=== PATIENT | female | born 1995 | race American Indian/Alaskan Native ===

== ENCOUNTER 2016-10-11 18:30 | Emergency (ER) | payer SELFPAY ==
[2016-10-11 19:23] LABS: Basophils % (Auto) 0.3 % (0.0-1.8); Eosinophils % (Auto) 0.3 % (0.0-4.3); Hematocrit 34.1 % (30.3-42.9); Hemoglobin 10.9 gm/dl (10.1-14.3); Mean Corpuscular HGB Conc 32 % (30-34); Mean Corpuscular Hemoglobin 28 pg (28-32); Mean Corpuscular Volume 87 fl (79-97); Platelet Count 227 K/mm3 (140-440); Red Blood Count 3.93 M/mm3 (3.65-5.03); Red Cell Distribution Width 12.4 % (13.2-15.2); White Blood Count 9.4 K/mm3 (4.5-11.0)
[2016-10-11] MEDS ORDERED: LIDOCAINE VISCOUS 2% ONE (20:43)
[2016-10-11] MEDS ORDERED: XYLOCAINE TOPICAL 2% ONE (20:45)
--- NOTE | 2016-10-11 20:51 | Emergency Department Report ---
ED HPI - General Chief complaint: Vaginal Bleeding Stated complaint: X 4 WKS/BLEEDING Time Seen by Provider: 10/11/16 20:07 Source: patient Mode of arrival: Ambulatory Limitations: No Limitations - History of Present Illness Initial comments: Patient is a 21-year-old female with no past medical history , presenting with vaginal bleeding and lower abdominal cramping. Patient reports she has been having intermittent lower abdominal cramping, vaginal bleeding with clots for the last 7 days and reports she found that she is yesterday at [facility]. Patient reports she is bleeding like a normal cycle. Patient has no by mouth care. Otherwise no fevers, chills, headache, dizziness , nausea, vomiting, shortness of breath, chest pain, back pain, dysuria, travel , or sick contacts. - Related Data Allergies Allergy/AdvReac Type Severity Reaction Status Date / Time No Known Allergies Allergy Unverified 10/11/16 18:39 ED Review of Systems ROS: Stated complaint: X 4 WKS/BLEEDING Other details as noted in HPI Comment: All other systems reviewed and negative ED Past Medical Hx - Past Medical History Previous Medical History?: No - Surgical History Past Surgical History?: No - Social History Smoking Status: Never Smoker Substance Use Type: None ED Physical Exam - General Limitations: No Limitations General appearance: alert, in no apparent distress - Head Head exam: Present: atraumatic, normocephalic - Eye Eye exam: Present: normal appearance - ENT ENT exam: Present: mucous membranes moist - Neck Neck exam: Present: normal inspection - Respiratory Respiratory exam: Present: normal lung sounds bilaterally. Absent: respiratory distress - Cardiovascular Cardiovascular Exam: Present: regular rate, normal rhythm. Absent: systolic murmur, diastolic murmur, rubs, gallop - GI/Abdominal GI/Abdominal exam: Present: soft, normal bowel sounds. Absent: distended, tenderness, guarding, rebound, rigid - Rectal Rectal exam: Present: deferred - External exam: Present: normal external exam, bleeding Speculum exam: Present: vaginal bleeding, other. Absent: erythema, vaginal discharge, cervical discharge Bi-manual exam: Present: normal bi-manual exam, other (Cervix is closed). Absent: cervical motion tendernes - Extremities Exam Extremities exam: Present: normal inspection - Back Exam Back exam: Present: normal inspection - Neurological Exam Neurological exam: Present: alert, oriented X3 - Psychiatric Psychiatric exam: Present: normal affect, normal mood - Skin Skin exam: Present: warm, dry, intact, normal color. Absent: rash ED Course Vital Signs 10/11/16 10/11/16 10/11/16 18:40 19:39 19:40 Temperature 99.7 F H Pulse Rate 121 H Respiratory 16 Rate Blood Pressure 124/79 122/79 Blood Pressure [Left] O2 Sat by Pulse 97 100 100 Oximetry 10/11/16 10/11/16 10/11/16 19:48 19:49 19:50 Temperature 98.6 F Pulse Rate 105 H Respiratory 16 14 Rate Blood Pressure 122/79 Blood Pressure 122/79 [Left] O2 Sat by Pulse 100 98 Oximetry 10/11/16 10/11/16 10/11/16 20:00 20:45 20:56 Temperature Pulse Rate 91 H Respiratory 18 Rate Blood Pressure 113/77 123/77 Blood Pressure [Left] O2 Sat by Pulse 99 100 Oximetry ED Medical Decision Making - Lab Data Result diagrams: 10/11/16 19:09 - Radiology Data Radiology results: report reviewed Ultrasound OB: Small gestational sac in the uterus. By sac size estimated at 5 weeks 2 days. No structures identified. May be very early gestation and continued follow-up recommended. - Medical Decision Making Results discussed with the patient. Pt reports she does not want to maintain this . Pt understands we do not terminate pregnancies in the ED and she needs to follow up with the transit planning director. Even though the patient wishes to terminate I will strategic alliances manager her a script to have her Beta HCG quant re-checked in 2 days. Repeat HR: 91, improved on its own Critical care attestation.: If time is entered above; I have spent that time in minutes in the direct care of this critically ill patient, excluding procedure time. ED Disposition Clinical Impression: Threatened , Vaginal bleeding in Disposition: DC-01 TO HOME OR SELFCARE Is pt being admited?: No Condition: Stable Instructions: Threatened Miscarriage (ED) Additional Instructions: PLEASE GO TO A LAB AND HAVE YOUR BETA HCG CHECKED AGAIN IN 2 DAYS TO ENSURE IT IS RISING APPROPRIATELY IF YOU PLAN TO MAINTAIN YOUR PLEASE FOLLOW UP WITH STATION WORKER Referrals: PRIMARY CARE, [Primary Care Provider] - 3-5 Days
[2016-10-11 20:56] VITALS: BP 123/77
--- NOTE | 2016-10-11 21:06 | Ultrasound Report ---
FINAL REPORT EXAM: US OB TRANSVAGINAL HISTORY: Vaginal bleeding positive beta HCG 2200 TECHNIQUE: Ultrasound obstetrical transvaginal PRIORS: None. FINDINGS: There is small sac within the uterus measuring 0.0 x 4.2 x 6.2 centimeters. No pole or yolk identified at this time. The uterus is 8.0 x 4.2 x 6.2 centimeters the right ovary is 3.0 x 2.1 x 1.7 centimeters. The left ovary is 2.4 x 1.5 x 2.3 centimeters. Ovaries demonstrate normal echogenicity. No free fluid is identified within the cul-de-sac IMPRESSION: Small gestational sac within the uterus. By sac size estimated at 5 weeks 2 days. No structures identified. May be very early gestation and continued followup recommended.
--- NOTE | 2016-10-11 21:08 | Ultrasound Report ---
FINAL REPORT EXAM: US OB \T\lt; = 14 WEEKS FETUS HISTORY: bleeding TECHNIQUE: Ultrasound pelvis transabdominal PRIORS: None. FINDINGS: There is small sac within the uterus measuring 0.0 x 4.2 x 6.2 centimeters. No pole or yolk identified at this time. The uterus is 8.0 x 4.2 x 6.2 centimeters the right ovary is 3.0 x 2.1 x 1.7 centimeters. The left ovary is 2.4 x 1.5 x 2.3 centimeters. Ovaries demonstrate normal echogenicity. No free fluid is identified within the cul-de-sac IMPRESSION: Small gestational sac within the uterus. By sac size estimated at 5 weeks 2 days. No structures identified. May be very early gestation and continued followup recommended.
[2016-10-11] MEDS ORDERED: XYLOCAINE TOPICAL 2% TP ONE ×2 (22:01→23:00)
[2016-10-11 22:43] LABS: Bacteria,Urine 1+ /HPF (Negative); Bilirubin,Urine NEG (Negative); Blood,Urine LG (Negative); Ketones,Urine NEG (Negative); Leukocyte Esterase,Urine TR (Negative); Nitrite,Urine NEG (Negative); Protein,Urine <15 mg/dL mg/dL (Negative); Urobilinogen,Urine < 2.0 mg/dL (<2.0)
== END 2016-10-11 23:36 | disposition home or self-care (01) ==
LOC: ED 18:30
DX: O20.0 Threatened abortion (principal); Z3A.01 Less than 8 weeks gestation of pregnancy
CPT/HCPCS: 36415; 76801; 76817; 81001; 84702; 84703; 85025; 86850; 86900; 86901

== ENCOUNTER 2016-10-18 12:16 | Emergency (ER) | payer MEDICAID ==
[2016-10-18 14:17] LABS: Basophils % (Auto) 0.3 % (0.0-1.8); Eosinophils % (Auto) 0.3 % (0.0-4.3); Hematocrit 30.5 % (30.3-42.9); Hemoglobin 9.6 gm/dl (10.1-14.3); Mean Corpuscular HGB Conc 32 % (30-34); Mean Corpuscular Hemoglobin 28 pg (28-32); Mean Corpuscular Volume 88 fl (79-97); Red Blood Count 3.47 M/mm3 (3.65-5.03); Red Cell Distribution Width 12.5 % (13.2-15.2); White Blood Count 12.2 K/mm3 (4.5-11.0)
[2016-10-18 15:17] LABS: Platelet Count 235 K/mm3 (140-440)
[2016-10-18 15:19] LABS: Mean Platelet Volume 8.8 fl (6-12)
--- NOTE | 2016-10-18 16:15 | Ultrasound Report ---
Transabdominal and transvaginal OB ultrasound. History: Vaginal bleeding. Her serum hCG at the time of the study measures 1420. Findings: A gestational sac is not identified on today's study. This represents an interval change since the study on October 11. The endometrial echo measures 13 mm in thickness. The right ovary is normal in size. There is a 2.5 cm in diameter complex area in the right ovary. The left ovary is prominent measuring 4.9 x 2.6 x 3.9 cm. There is a complex area in the left ovary measuring 3.4 cm in size. Impression: 1. No evidence of gestational sac is seen on today's study indicating complete . 2. Nonspecific bilateral complex lesions in the ovaries.
[2016-10-18 17:30] LABS: Bilirubin,Urine NEG (Negative)
[2016-10-18 17:31] LABS: Blood,Urine LG (Negative); Ketones,Urine 80 mg/dL (Negative); Leukocyte Esterase,Urine MOD (Negative); Mucus,Urine 3+ /HPF; Nitrite,Urine NEG (Negative)
--- NOTE | 2016-10-18 19:58 | Emergency Department Report ---
ED Female HPI - General Chief complaint: Abdominal Pain Stated complaint: /BLEEDING Time Seen by Provider: 10/18/16 19:39 Source: patient Mode of arrival: Ambulatory Limitations: No Limitations - Related Data Allergies Allergy/AdvReac Type Severity Reaction Status Date / Time No Known Allergies Allergy Unverified 10/11/16 18:39 ED Review of Systems ROS: Stated complaint: /BLEEDING Other details as noted in HPI ED Past Medical Hx - Past Medical History Previous Medical History?: No - Surgical History Past Surgical History?: No - Social History Smoking Status: Never Smoker Substance Use Type: None ED Physical Exam - General Limitations: No Limitations ED Course Vital Signs 10/18/16 10/18/16 13:39 16:50 Temperature 97.9 F 98.5 F Pulse Rate 103 H 101 H Respiratory 18 18 Rate Blood Pressure 127/81 Blood Pressure 122/77 [Left] O2 Sat by Pulse 100 100 Oximetry ED Medical Decision Making - Lab Data Result diagrams: 10/18/16 13:50 Critical care attestation.: If time is entered above; I have spent that time in minutes in the direct care of this critically ill patient, excluding procedure time. ED Disposition Condition: Stable Instructions: Abdominal Pain (ED)
[2016-10-18] MEDS ORDERED: MOTRIN PO ONE (20:22)
[2016-10-18 21:22] LABS: Basophils % (Auto) 0.2 % (0.0-1.8); Eosinophils % (Auto) 0.3 % (0.0-4.3); Hematocrit 30.5 % (30.3-42.9); Hemoglobin 9.7 gm/dl (10.1-14.3); Mean Corpuscular HGB Conc 32 % (30-34); Mean Corpuscular Hemoglobin 27 pg (28-32); Mean Corpuscular Volume 85 fl (79-97); Platelet Count 314 K/mm3 (140-440); Red Blood Count 3.59 M/mm3 (3.65-5.03); Red Cell Distribution Width 12.2 % (13.2-15.2); White Blood Count 9.6 K/mm3 (4.5-11.0)
[2016-10-18 21:39] LABS: Alanine Aminotransferase 20 units/L (7-56); Albumin/Globulin Ratio 1.2 %; Alkaline Phosphatase 70 units/L (35-129); Amylase 51 units/L (27-131); Anion Gap 21 mmol/L; BUN/Creatinine Ratio 11.66; Blood Urea Nitrogen 7 mg/dL (7-17); Carbon Dioxide 21 mmol/L (22-30); Chloride 99.6 mmol/L (98-107); Glucose 93 mg/dL (65-100); Lipase 15 units/L (13-60); Potassium 3.2 mmol/L (3.6-5.0); Sodium 138 mmol/L (137-145); Total Protein 7.4 g/dL (6.3-8.2)
[2016-10-18 21:46] LABS: Bilirubin,Direct < 0.2 mg/dL (0-0.2); Bilirubin,Indirect 0.2 mg/dL
[2016-10-18] MEDS ORDERED: K-DUR PO ONE (21:55)
[2016-10-18 22:52] VITALS: BP 112/73
--- NOTE | 2016-10-21 19:40 | Emergency Department Report ---
Entered by LYNDA GODINEZ, acting as scribe for BETH DIEHL PA. ED Abdominal Pain HPI - General Chief Complaint: Abdominal Pain Stated Complaint: /BLEEDING Time Seen by Provider: 10/18/16 19:43 Source: patient Mode of arrival: Ambulatory Limitations: No Limitations - History of Present Illness Initial Comments: 21 y/o female presents to the ED c/o diffuse abdominal pain x 1 week. Associated symptoms include fever, chills, nausea, and vaginal bleeding ( reducing presently) but she denies vomiting and vaginal discharge. Pain is described as cramping and 10/10 on a severity scale. Patient is and reports OBGYN visit. Denies using tobacco products and alcohol. NKDA. LMP: . MD Complaint: abdominal pain Onset/Timin -: week(s) Location: diffuse Radiation: none Migration to: no migration Severity: severe Severity scale (0 -10): 10 Quality: cramping Consistency: intermittent Improves With: nothing Worsens With: nothing Associated Symptoms: nausea, fever, chills, other (vaginal bleeding, weakness, no vomiting, no vaginal discharge). denies: vomiting - Related Data LMP Date: 09/11/16 LMP (females 10-50): Previous Rx's Medication Instructions Recorded Last Taken Type Ibuprofen [Motrin] 600 mg PO Q8H PRN #30 tablet 10/18/16 Unknown Rx Potassium Chloride [K-Dur] 20 meq PO BID #10 tablet 10/18/16 Unknown Rx metroNIDAZOLE [Flagyl TAB] 500 mg PO Q12HR #14 tab 10/18/16 Unknown Rx Allergies Allergy/AdvReac Type Severity Reaction Status Date / Time No Known Allergies Allergy Unverified 10/11/16 18:39 ED Review of Systems Comment: All other systems reviewed and negative Constitutional: chills, fever Gastrointestinal: abdominal pain, nausea. denies: vomiting Genitourinary: other (vaginal bleeding). denies: discharge Neurological: weakness ED Past Medical Hx - Past Medical History Previous Medical History?: No - Surgical History Past Surgical History?: No - Social History Smoking Status: Never Smoker Substance Use Type: None - Medications Home Medications: Home Medications Medication Instructions Recorded Confirmed Last Taken Type Ibuprofen [Motrin] 600 mg PO Q8H PRN #30 tablet 10/18/16 Unknown Rx Potassium Chloride [K-Dur] 20 meq PO BID #10 tablet 10/18/16 Unknown Rx metroNIDAZOLE [Flagyl TAB] 500 mg PO Q12HR #14 tab 10/18/16 Unknown Rx ED Physical Exam - General Limitations: No Limitations General appearance: alert, in no apparent distress - Head Head exam: Present: atraumatic, normocephalic, normal inspection - Eye Eye exam: Present: normal appearance, PERRL, EOMI Pupils: Present: normal accommodation - ENT ENT exam: Present: normal exam, normal orophraynx, mucous membranes moist, TM's normal bilaterally, normal external ear exam - Neck Neck exam: Present: normal inspection, full ROM. Absent: tenderness - Respiratory Respiratory exam: Present: normal lung sounds bilaterally. Absent: respiratory distress, wheezes, rales, rhonchi, chest wall tenderness - Cardiovascular Cardiovascular Exam: Present: regular rate, normal rhythm, normal heart sounds. Absent: systolic murmur, diastolic murmur, rubs, gallop - GI/Abdominal GI/Abdominal exam: Present: soft, tenderness (suprapubic), normal bowel sounds - External exam: Present: bleeding. Absent: lesions Speculum exam: Present: vaginal bleeding Bi-manual exam: Present: normal bi-manual exam, other (blood in vaginal vault ) . Absent: cervical motion tendernes, adnexal tenderness - Extremities Exam Extremities exam: Present: normal inspection, full ROM. Absent: tenderness, normal capillary refill, pedal edema, joint swelling, calf tenderness - Back Exam Back exam: Present: normal inspection, full ROM. Absent: tenderness, CVA tenderness (R), CVA tenderness (L), muscle spasm, paraspinal tenderness, vertebral tenderness, rash noted - Neurological Exam Neurological exam: Present: alert, oriented X3 - Psychiatric Psychiatric exam: Present: normal affect, normal mood - Skin Skin exam: Present: warm, dry, intact, normal color - Other Other exam information: Pat Godinez present during external/speculum/bi-manual exam ED Course Vital Signs 10/18/16 10/18/16 10/18/16 13:39 16:50 20:55 Temperature 97.9 F 98.5 F Pulse Rate 103 H 101 H Respiratory 18 18 16 Rate Blood Pressure 127/81 Blood Pressure 122/77 [Left] O2 Sat by Pulse 100 100 Oximetry ED Medical Decision Making - Lab Data Result diagrams: 10/18/16 20:51 10/18/16 20:51 - Medical Decision Making A/P: Miscarriage, complete , anemia, Rh- blood type status and , crampy lower abdominal pain, BV 1-ultrasound consistent with incomplete miscarriage/. No gestational sac shown on ultrasound. Patient had visualized gestational sac on 10/11/16. Patient has had drop in hCG level. These are all findings consistent with spontaneous miscarriage 2-CBC shows mild anemia, will give patient iron supplementation. BMP shows mild hypokalemia will give patient by mouth supplementation 3-Motrin when necessary for crampy lower abdominal pain 4- I advised the patient to follow up with SENIOR RISK MANAGER and gave her referral for OB/ COFOUNDER follow-up 5- no clinical signs of PID there is no cervical motion tenderness or adnexal tenderness on pelvic exam 6-I advised the patient to return to the ED for any increase in vaginal bleeding , generalized weakness, nausea and vomiting or fever and chills. Patient stated that she understood my instructions 7-patient is A- blood type RhoGAM administered in the ED. 8- metronidazole for BV x7 days ED Disposition Clinical Impression: Miscarriage, Anemia Disposition: - TO HOME OR SELFCARE Is pt being admited?: No Does the pt Need Aspirin: No Condition: Stable Instructions: Spontaneous Miscarriage (ED), Iron Deficiency Anemia (ED), Rho(D ) Immune Globulin (Injection), Bacterial Vaginosis (ED) Prescriptions: Ibuprofen [Motrin] 600 mg PO Q8H PRN #30 tablet PRN Reason: Pain metroNIDAZOLE [Flagyl TAB] 500 mg PO Q12HR #14 tab Potassium Chloride [K-Dur] 20 meq PO BID #10 tablet Referrals: [facility] [Provider Group] - 3-5 Days CONSTANZA RAYGOZA MD [Staff Physician] - 3-5 Days Forms: Work/School Release Form(ED) Time of Disposition: 21:51 This documentation as recorded by the HERBERT cota ELIZABETH,accurately reflects the service I personally performed and the decisions made by me,BETH DIEHL PA.
== END 2016-10-18 22:05 | disposition home or self-care (01) ==
LOC: ED 12:16
DX: O03.9 Complete or unspecified spontaneous abortion without complication (principal); D64.9 Anemia, unspecified
CPT/HCPCS: 36415; 76801; 76817; 80048; 80074; 81001; 82150; 83690; 84702; 85025; 86850; 86900; 86901; 87210; 87591; 99284; J2790

== ENCOUNTER 2020-07-24 00:43 | Emergency (ER) | payer MEDICAID ==
--- NOTE | 2020-07-24 01:11 | Emergency Department Report ---
ED HPI - General Chief complaint: Vaginal Bleeding Stated complaint: MISCARRIAGE Time Seen by Provider: 07/24/20 00:59 Source: patient, EMS Mode of arrival: Stretcher Limitations: No Limitations - History of Present Illness Initial comments: 24-year-old female, , presents to the ED possible miscarriage. Patient states she is 16 weeks . Reports she has been having some vaginal spotting for approximately the last 2 weeks. Patient states she was seen by her SURVEY RESEARCH MANAGER in office. Yesterday, patient passed a clot and went to [facility] ER for evaluation. There, she had an ultrasound showing threatened AB with heart rate present. Patient states after she from the ER, she began having severe abdominal cramping, so she called EMS. En route, patient passed clots and tissue. Patient states her abdominal pain is much better at this time. Patient followed by [facility]. Complaint: abdominal pain, vaginal bleeding, other (Miscarriage) -: This morning Location: pelvis Radiation: none Severity: moderate Quality: cramping Consistency: constant Improves with: none Worsens with: none Associated symptoms: vaginal bleeding Vaginal bleeding: clots :: Yes Number of weeks : 16 OB History - Previous Pregnancies: miscarriage Pre-andreina care: followed by OB - Related Data : 2 Para: 0 Previous Rx's Medication Instructions Recorded Last Taken Type Ibuprofen [Motrin] 600 mg PO Q8H PRN #30 tablet 10/18/16 Unknown Rx Potassium Chloride [K-Dur] 20 meq PO BID #10 tablet 10/18/16 Unknown Rx metroNIDAZOLE [Flagyl TAB] 500 mg PO Q12HR #14 tab 10/18/16 Unknown Rx Naproxen [Naprosyn] 500 mg PO BID #20 tablet 07/24/20 Unknown Rx traMADoL [Ultram] 50 mg PO Q6HR PRN #7 tablet 07/24/20 Unknown Rx Allergies Allergy/AdvReac Type Severity Reaction Status Date / Time No Known Allergies Allergy Unverified 10/11/16 18:39 ED Review of Systems ROS: Stated complaint: MISCARRIAGE Other details as noted in HPI Comment: All other systems reviewed and negative Gastrointestinal: abdominal pain Genitourinary: other (Reports vaginal bleeding) ED Past Medical Hx - Past Medical History Previous Medical History?: No - Surgical History Past Surgical History?: No - Social History Smoking Status: Never Smoker - Medications Home Medications: Home Medications Medication Instructions Recorded Confirmed Last Taken Type Ibuprofen [Motrin] 600 mg PO Q8H PRN #30 tablet 10/18/16 Unknown Rx Potassium Chloride [K-Dur] 20 meq PO BID #10 tablet 10/18/16 Unknown Rx metroNIDAZOLE [Flagyl TAB] 500 mg PO Q12HR #14 tab 10/18/16 Unknown Rx Naproxen [Naprosyn] 500 mg PO BID #20 tablet 07/24/20 Unknown Rx traMADoL [Ultram] 50 mg PO Q6HR PRN #7 tablet 07/24/20 Unknown Rx ED Physical Exam - General Limitations: No Limitations General appearance: alert, in no apparent distress - Head Head exam: Present: atraumatic, normocephalic - Eye Eye exam: Present: normal appearance, EOMI - ENT ENT exam: Present: mucous membranes moist - Neck Neck exam: Present: normal inspection - Respiratory Respiratory exam: Present: normal lung sounds bilaterally. Absent: respiratory distress - Cardiovascular Cardiovascular Exam: Present: regular rate, normal rhythm - GI/Abdominal GI/Abdominal exam: Present: soft, tenderness (Mild suprapubic). Absent: distended - External exam: Present: other (Intact appearing fetus with tissue outside of vagina on stretcher). Absent: bleeding - Extremities Exam Extremities exam: Present: normal inspection - Neurological Exam Neurological exam: Present: alert, oriented X3 - Psychiatric Psychiatric exam: Present: normal affect, normal mood - Skin Skin exam: Present: warm, dry, intact, normal color ED Course Vital Signs 07/24/20 07/24/20 07/24/20 00:50 00:56 01:00 Temperature 98.9 F Pulse Rate 99 H 82 83 Respiratory 16 22 Rate Blood Pressure 127/83 Blood Pressure 115/69 [Right] O2 Sat by Pulse 100 100 100 Oximetry 07/24/20 07/24/20 07/24/20 01:20 01:30 02:00 Temperature Pulse Rate 84 80 Respiratory 18 14 16 Rate Blood Pressure 120/75 126/69 Blood Pressure [Right] O2 Sat by Pulse 100 100 Oximetry 07/24/20 07/24/20 07/24/20 02:30 03:00 03:30 Temperature Pulse Rate 86 82 85 Respiratory 12 15 15 Rate Blood Pressure 112/61 115/61 112/57 Blood Pressure [Right] O2 Sat by Pulse 99 99 98 Oximetry 07/24/20 07/24/20 04:00 04:30 Temperature Pulse Rate 80 84 Respiratory 14 14 Rate Blood Pressure 117/64 101/69 Blood Pressure [Right] O2 Sat by Pulse 100 100 Oximetry ED Medical Decision Making - Lab Data Result diagrams: 07/24/20 01:17 07/24/20 01:17 - Radiology Data Radiology results: report reviewed, image reviewed - Medical Decision Making 24-year-old female presents to ED following complete spontaneous . Patient delivered the fetus which was sent to pathology. Ultrasound is unremarkable, no evidence of retained POC's. Bleeding and cramping have stopped. Vital signs are stable. Patient given RhoGam due to Rh- status. Pat ient advised to follow-up with her SURVEY RESEARCH MANAGER. She will be discharged at this time. Return precautions given. - Differential Diagnosis Complete AB, incomplete AB Critical care attestation.: If time is entered above; I have spent that time in minutes in the direct care of this critically ill patient, excluding procedure time. ED Disposition Clinical Impression: Complete miscarriage Disposition: DC-01 TO HOME OR SELFCARE Is pt being admited?: No Condition: Stable Instructions: Miscarriage, [id number] Prescriptions: Naproxen [Naprosyn] 500 mg PO BID #20 tablet traMADoL [Ultram] 50 mg PO Q6HR PRN #7 tablet PRN Reason: Pain Referrals: PRIMARY CARE, [Primary Care Provider] - 3-5 Days Time of Disposition: 04:30
[2020-07-24 01:43] LABS: Basophils % (Auto) 0.2 % (0.0-1.8); Eosinophils % (Auto) 0.1 % (0.0-4.3); Hematocrit 32.6 % (30.3-42.9); Hemoglobin 11.1 gm/dl (10.1-14.3); Lymphocytes # (Auto) 0.9 K/mm3 (1.2-5.4); Lymphocytes % (Auto) 8.8 % (13.4-35.0); Mean Corpuscular HGB Conc 34 % (30-34); Mean Corpuscular Volume 86 fl (79-97); Monocytes # (Auto) 0.4 K/mm3 (0.0-0.8); Monocytes % (Auto) 3.9 % (0.0-7.3); Platelet Count 275 K/mm3 (140-440); Red Cell Distribution Width 13.3 % (13.2-15.2)
[2020-07-24 02:02] LABS: Blood Urea Nitrogen 5 mg/dL (7-17); Calcium 9.4 mg/dL (8.4-10.2); Hemolysis Index 3
[2020-07-24 02:04] LABS: BUN/Creatinine Ratio 10
--- NOTE | 2020-07-24 02:36 | Ultrasound Report ---
US OB >= 14 weeks Fetus INDICATION / CLINICAL INFORMATION: miscarriage. COMPARISON: None available. FINDINGS: No endometrial fluid collection is seen. Cervix is closed. Endometrial echo complex measures 19 mm, m ildly enlarged. Ovaries are unremarkable. No adnexal lesions. IMPRESSION: 1. No sonographic evidence of intrauterine or retained products. Signer Name: Hamilton Armando MD Signed: 07/24/2020 2:31 AM Workstation Name: [id number]
[2020-07-24 04:43] VITALS: BP 101/69
== END 2020-07-24 04:42 | disposition home or self-care (01) ==
LOC: ED 00:43
DX: O20.0 Threatened abortion (principal); Z79.899 Other long term (current) drug therapy; Z3A.16 16 weeks gestation of pregnancy
CPT/HCPCS: 36415; 76801; 80048; 84702; 85025; 85461; 86850; 86870; 86900; 86901; 96372; 99284; J2790; 76805

== ENCOUNTER 2021-09-28 16:37 | Emergency (ER) | payer MEDICAID ==
[2021-09-28 16:55] VITALS: BP 117/78
--- NOTE | 2021-09-28 17:24 | XRay Report ---
Left wrist 3 views INDICATION: Twisting injury FINDINGS: Alignment appears normal. No acute fracture dislocation. No foreign body seen in soft tissu es Signer Name: Ricky Ghotra MD Signed: 09/28/2021 5:19 PM Workstation Name: [id number]
== END 2021-09-29 06:30 | disposition left against medical advice (07) ==
LOC: ED 16:37
DX: S69.92XA Unspecified injury of left wrist, hand and finger(s), initial encounter (principal); Z53.21 Procedure and treatment not carried out due to patient leaving prior to being seen by health care provider; X58.XXXA Exposure to other specified factors, initial encounter; Y93.89 Activity, other specified; Y92.89 Other specified places as the place of occurrence of the external cause; Y99.8 Other external cause status